=== PATIENT | male | born 1990 | race Caucasian/White ===

== ENCOUNTER 2017-06-21 20:14 | Emergency (ER) | payer OTHER ==
[~2017-06-21] VITALS: Ht 175.3 cm; Wt 72.7 kg
[2017-06-21 20:16] VITALS: BP 142/83
[2017-06-21] MEDS ORDERED: CEPH250T PO (21:02)
[2017-06-21] MEDS ORDERED: CEPHALEXIN 250 MG CAP PO ONE (21:15)
== END 2017-06-21 21:21 | disposition home or self-care (01) ==
LOC: M ED 20:14
DX: L03.011 Cellulitis of right finger (principal)

== ENCOUNTER 2018-12-10 08:15 | Emergency (ER) | payer OTHER ==
[~2018-12-10] VITALS: Ht 175.3 cm; Wt 75.0 kg
[~2018-12-10 08:15] MED LIST: CEPH250T PO
--- NOTE | 2018-12-10 09:43 | REP ---
Chest two views HISTORY: Cough Comparison: None The lungs are clear. The heart is normal in size. The pulmonary vasculature is normal in appearance. The bony structure is intact. IMPRESSION: No acute disease. Electronically Signed by Benedict Jarquin MD 12/10/2018 09:34 A
[2018-12-10] MEDS ORDERED: AUGM875T28 PO (09:52)
[2018-12-10] MEDS ORDERED: PROAAER10 INH (09:52)
[2018-12-10] MEDS ORDERED: MUCI600T37 PO (09:52)
[2018-12-10] MEDS ORDERED: CLAR1TAB2 PO (09:52)
[2018-12-10] MEDS ORDERED: IBUP80TA PO (09:54)
[2018-12-10 09:58] VITALS: BP 140/77
[2018-12-10] MEDS ORDERED: AUGMENTIN 875 MG TAB PO ONE (10:00)
== END 2018-12-10 10:06 | disposition home or self-care (01) ==
LOC: M ED 08:15
DX: D17.1 Benign lipomatous neoplasm of skin and subcutaneous tissue of trunk (principal); J01.90 Acute sinusitis, unspecified; J20.9 Acute bronchitis, unspecified